=== PATIENT | female | born 1930 | race Asian ===

== ENCOUNTER → 2019-01-21 | Outpatient (CLI) | payer MEDICARE, OTHER | END | disposition home or self-care (01) | LOC: RADMN 09:22 | PROVIDERS: ATTEND Specialist | DX: I67.82 Cerebral ischemia (principal); R90.82 White matter disease, unspecified; J32.0 Chronic maxillary sinusitis; J32.2 Chronic ethmoidal sinusitis; E87.8 Other disorders of electrolyte and fluid balance, not elsewhere classified | CPT/HCPCS: 70551 ==